=== PATIENT | female | born 1995 | race Hispanic/Latino ===

== ENCOUNTER 2020-09-08 19:59 | Emergency (ER) | payer SELFPAY ==
[~2020-09-08] VITALS: Ht 165.1 cm; Wt 94.8 kg
== END 2020-09-09 00:11 | disposition home or self-care (01) ==
LOC: ED 19:59
DX: O21.9 Vomiting of pregnancy, unspecified (principal); Z3A.11 11 weeks gestation of pregnancy
CPT/HCPCS: 80053; 83735; 84703; 85025; 96374; 96375; 99284-25; J2405; J2550; J7030; J7040

== ENCOUNTER 2021-03-22 10:12 | Inpatient (IN) | payer OTHER ==
[~2021-03-22] VITALS: Ht 165.1 cm; Wt 103.9 kg
--- NOTE | 2021-03-22 11:06 | NUR ---
Both nares swabbed for Covid-19 without complication. Rapid PCR sample taken to [facility] lab
--- NOTE | 2021-03-22 18:08 | PR ---
[facility] [address] [facility] [place] [facility] [place], [place] [address] Signed Progress Notes IP Datetime Report Generated by CPN: 03/22/2021 18:08 PROGRESS NOTES: [id number] Other Impressions: slow progress Procedures: Intrauterine Pressure Catheter; Sterile Vag Exam Plan: Augmentation VITAL SIGNS: [id number] Vital Signs: Reviewed; Within Normal Limits EXAM: [id number] Dilatation: 7.0 Effacement: 100 Station: 1 Contractions: irreg MEMBRANES: [id number] Comments: Minimal change since admit today. Contractions appear inadequate with IUPC. Will begin pit augment. FETUS A: [id number] FHR Baseline: 140 Variability: Moderate 6-25bpm Accelerations: 15X15 Decelerations: None FHR Category: Category I Presentation: Vertex Comments on Fetus A: No evidence of metabolic acidosis FETUS B: [id number] Signing Physician: Deedee Mackenzie MD Copies: ~ *Electronically Signed* 03/22/21 1808 DEEDEE MACKENZIE MD PATIENT NAME: RAMIREZHERMINIO ALVAREZ PROGRESS NOTE DATE OF : [birth year] PHYSICIAN: DEEDEE MACKENZIE MD RPT #: [id number] REPORT IS CONFIDENTIAL AND NOT TO BE RELEASED WITHOUT AUTHORIZATION
--- NOTE | 2021-03-23 09:07 | PR ---
[facility] [address] [place], [place] [address] Signed PP Progress Notes Datetime Report Generated by CPN: 03/23/2021 09:07 SUBJECTIVE: [id number] Pain: Within Normal Limits Vital Signs: [id number] Vital Signs: Reviewed Notable Details: mild HTN Cardiovascular: Not Done Respiratory: Not Done Abdomen/Uterus: Abnormal Lochia: Normal Vulva/Perineum: Not Done Breasts: Not Done CVA Tenderness: Not Done Extremities: Normal Incision: Not Applicable Progress: Abnormal Exam Comments: Fundus firm, NT @ U-2. H/H 10.1/30.6, WBC 18, plat 191k AST 60 (48 yest) ALT 118 (89 yest) IMPRESSION/PLAN/PROCEDURES: [id number] Impression: Difficulties; Induced Hypertension Other Impression: elevated LFTs, anemia Plan: Consult Progress Notes: Doing well overall. She is tolerating the anemia and no evidence of any excess bleeding. LFTs are a little bit higher but otherwise she is asymptomatic. Signing Physician: Deedee Mackenzie MD Copies: ~ *Electronically Signed* 03/23/21906 DEEDEE MACKENZIE MD PATIENT NAME: HERMINIO RAMIREZ PROGRESS NOTE DATE OF : [birth year] PHYSICIAN: DEEDEE MACKENZIE MD RPT #: [id number] REPORT IS CONFIDENTIAL AND NOT TO BE RELEASED WITHOUT AUTHORIZATION
--- NOTE | 2021-03-24 09:15 | PR ---
[facility] [address] [facility] [place], [place] [address] Signed PP Progress Notes Datetime Report Generated by CPN: 03/24/2021 09:15 SUBJECTIVE: [id number] Pain: Within Normal Limits Vital Signs: [id number] Vital Signs: Reviewed; Within Normal Limits Notable Details: mild HTN Cardiovascular: Not Done Respiratory: Not Done Abdomen/Uterus: Abnormal Lochia: Normal Vulva/Perineum: Not Done Breasts: Not Done CVA Tenderness: Not Done Extremities: Normal Incision: Not Applicable Progress: Normal Exam Comments: Fundus firm, NT @ U-1. IMPRESSION/PLAN/PROCEDURES: [id number] Impression: Normal Progression Other Impression: elevated LFTs, anemia Plan: Discharge Procedures: None Progress Notes: Doing well. She is ready for D/C. Discussed possible boarder status if baby is not discharged. Signing Physician: Criselda Mackenzie MD Copies: ~ *Electronically Signed* 03/24/21914 CRISELDA MACKENZIE MD PATIENT NAME: HERMINIO RAMIREZ KIM PROGRESS NOTE DATE OF : [birth year] PHYSICIAN: CRISELDA MACKENZIE MD RPT #: [id number] REPORT IS CONFIDENTIAL AND NOT TO BE RELEASED WITHOUT AUTHORIZATION
== END 2021-03-24 21:45 | disposition home or self-care (01) | DRG 806 ==
LOC: FBC 10:12
PROVIDERS: ADMIT Obstetrics & Gynecology; ATTEND Obstetrics & Gynecology
PROC: 10E0XZZ Delivery of Products of Conception, External Approach (ICD-10-PCS; principal; 2021-03-22)
PROC: 0W8NXZZ Division of Female Perineum, External Approach (ICD-10-PCS; 2021-03-22)
PROC: 10907ZC Drainage of Amniotic Fluid, Therapeutic from Products of Conception, Via Natural or Artificial Opening (ICD-10-PCS; 2021-03-22)
PROC: 3E0R3BZ Introduction of Anesthetic Agent into Spinal Canal, Percutaneous Approach (ICD-10-PCS; 2021-03-22)
PROC: 00HU33Z Insertion of Infusion Device into Spinal Canal, Percutaneous Approach (ICD-10-PCS; 2021-03-22)
PROC: 10H07YZ Insertion of Other Device into Products of Conception, Via Natural or Artificial Opening (ICD-10-PCS; 2021-03-22)
DX: O14.14 Severe pre-eclampsia complicating childbirth (principal); O26.873 Cervical shortening, third trimester; Z37.0 Single live birth; O99.02 Anemia complicating childbirth; R79.89 Other specified abnormal findings of blood chemistry; O26.893 Other specified pregnancy related conditions, third trimester; D64.9 Anemia, unspecified; Z3A.36 36 weeks gestation of pregnancy
CPT/HCPCS: 01960; 80053; 84550; 85027; A9270; J2590; J2795; J3010; J7121; U0003